=== PATIENT | male | born 1955 | race Caucasian/White ===

== ENCOUNTER 2018-04-28 09:02 | Emergency (ER) | payer OTHER, SELFPAY ==
[2018-04-28 09:06] VITALS: BP 139/92; PULSE 66; RESP 16; TEMP 36.4; O2SAT 95
--- NOTE | 2018-04-28 09:10 | W.ED.GENAD ---
Discharge Plan Disposition Patient Disposition: HOME Condition: Stable Discharge Details Chief Complaint: Trauma Clinical Impression: Laceration of scalp, Head injury Primary Care Provider: WALT,LOCAL ED Provider: Irena Pacheco Home Meds and New Rx's Prescriptions: No Action diclofenac sodium 100 mg Tablet Extended Release 24 Hr 100 mg PO .M,W,F RF: 0 Discharge Instructions Instructions: Laceration (ED), Head Injury (ED), Staple Care (ED) Additional Instructions: Please return immediately to the emergency department if you develop any new or worsening symptoms or if you become otherwise concerned. It is extremely important that you schedule a follow-up appointment with your primary care doctor in 10 days to have your juan removed. Discharge Data Discharge Date/Time-TO BE ENTERED AT DEPARTURE: 04/28/18 11:24 Medical Decision Making MDM Narrative Medical decision making narrative: Jamal Blanco is a 63-year-old man without reported history of major medical problems presenting to the emergency department with blow to the head and laceration that occurred just prior to arrival while at work. On exam patient is well-appearing and nontoxic, benign cardiopulmonary exam, benign neuro exam. Given significant mechanism plan for CT head and neck. Will repair lac. Exam/history not consistent with extremity fracture, significant thoracoabdominal trauma, other emergent life/limb threatening process. CT head and c/s okay. C/s cleared clinically. Lac repaired. Pt reports that he feels well, denies any pain. Lengthy discussion with Pt re: RTED precautions and importance of outpt f/u. Pt is amenable to the plan. Medical Records Medical records reviewed: Yes I reviewed the patient's medical records. Imaging Data Radiologic Study: Radiologist's impression: CRANIAL CT (WITHOUT CONTRAST): A noncontrast cranial CT was performed. No priors. The ventricular system is normal in appearance. There is no evidence of an intracranial mass lesion. There is no evidence of a subdural or epidural hematoma. No focal areas of decreased attenuation are seen. IMPRESSION: Normal noncontrast Cranial CT. CT SCAN OF THE CERVICAL SPINE: Multiple contiguous axial images of the cervical spine were obtained. Sagittal and coronal reformatted images were evaluated on the [employer] workstation. No acute fractures or subluxations are present. Mild degenerative changes are seen in the cervical spine at C 3 - 4 and C 5 - 6. The prevertebral soft tissues are unremarkable. The lung apices are clear. IMPRESSION: No acute fractures or subluxations of the cervical spine. The findings were discussed with the emergency department on the date of the examination. HPI - General Adult General Mode of arrival: EMS. Date/Time Provider Initiated Documentation: 04/28/18 09:10. Limitations to Documentation: no limitations. Information obtained by: patient, RN notes reviewed and old records reviewed. HPI Narrative: Jamal Blanco is a 63 y/o man without a reported history of major medical problems who presents emergency department with blow to the head. 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 He reports that he was knocked into a ditch. He did not lose consciousness. No vomiting. Patient reports mild headache at this time, also some right-sided shoulder pain from landing in the ditch. He denies any other pain. Previously in his usual state of health. No weakness, numbness, tingling, nausea, visual changes. Related Data Home Medications Medication Instructions Recorded Confirmed diclofenac sodium 100 mg PO .M,W,F 04/28/18 04/28/18 Allergies Allergy/AdvReac Type Severity Reaction Status Date / Time Penicillins Allergy Unverified 04/28/18 09:16 Review of Systems Review of Systems Constitutional: denies fevers Eyes: denies eye pain ENT: denies facial pain, dental pain, sore throat Cardiovascular: denies chest pain Respiratory: denies SOB, cough GI: denies abdominal pain, vomiting, diarrhea : denies flank pain MSK: denies back pain, neck pain, myalgias, reports shoulder pain Skin: denies rash Neuro: denies lightheadedness, weakness, reports weakness [facility] Social History Smoking/Tobacco Use Status: Never Exam Narrative Exam Narrative: Constitutional: well and [id number], pleasant, conversing normally HENT: 1.5 cm laceration to left parietal scalp, head o/w atraumatic, normocephalic normal inspection, mucous membranes moist Eyes: conjunctiva normal, sclera normal, pupils 3mm b/l Neck: no stridor, normal ROM, trachea midline, mild diffuse posterior TTP without focality Chest: normal inspection Resp: normal work of breathing, LCTAB Cardio: normal rate, normal rhythm, no murmur appreciated GI: abdomen soft, non-tender, non-distended Back: normal inspection, no rash Skin: warm, dry, normal color, no rash Neuro: alert, not altered, grossly non-focal, normal tone Ext: no edema, right shoulder NTTP with full painless ROM, radial pulses intact and symmetric Psych: normal mood, normal affect, normal behavior Procedures Laceration Laceration 1: Site: scalp Side (If applicable): left Size (cm): 1.5 Description: linear Depth: simple, single layer Pre-repair: wound explored and irrigated extensively Skin layer closed with: other (2 juan)
--- NOTE | 2018-04-28 10:27 | DI.CT_ITS ---
SYMPTOMS/DIAGNOSIS: TRAUMA, HEADACHE, NECK PAIN CRANIAL CT (WITHOUT CONTRAST): A noncontrast cranial CT was performed. No priors. The ventricular system is normal in appearance. There is no evidence of an intracranial mass lesion. There is no evidence of a subdural or epidural hematoma. No focal areas of decreased attenuation are seen. IMPRESSION: Normal noncontrast Cranial CT. CT SCAN OF THE CERVICAL SPINE: Multiple contiguous axial images of the cervical spine were obtained. Sagittal and coronal reformatted images were evaluated on the [employer] workstation. No acute fractures or subluxations are present. Mild degenerative changes are seen in the cervical spine at C 3 - 4 and C 5 - 6. The prevertebral soft tissues are unremarkable. The lung apices are clear. IMPRESSION: No acute fractures or subluxations of the cervical spine. The findings were discussed with the emergency department on the date of the examination.
--- NOTE | 2018-05-05 07:43 | ED.GENADUL_ITS ---
Discharge Plan Disposition Patient Disposition: HOME Condition: Stable Discharge Details Chief Complaint: Trauma Clinical Impression: Laceration of scalp, Head injury Primary Care Provider: [facility],LOCAL ED Provider: Irena Pacheco Home Meds and New Rx's Prescriptions: No Action diclofenac sodium 100 mg Tablet Extended Release 24 Hr 100 mg PO .M,W,F RF: 0 Discharge Instructions Instructions: Laceration (ED), Head Injury (ED), Staple Care (ED) Additional Instructions: Please return immediately to the emergency department if you develop any new or worsening symptoms or if you become otherwise concerned. It is extremely important that you schedule a follow-up appointment with your primary care doctor in 10 days to have your juan removed. Discharge Data Discharge Date/Time-TO BE ENTERED AT DEPARTURE: 04/28/18 11:24 Medical Decision Making MDM Narrative Medical decision making narrative: Jamal Blanco is a 63-year-old man without reported history of major medical problems presenting to the emergency department with blow to the head and laceration that occurred just prior to arrival while at work. On exam patient is well-appearing and nontoxic, benign cardiopulmonary exam, benign neuro exam. Given significant mechanism plan for CT head and neck. Will repair lac. Exam/history not consistent with extremity fracture, significant thoracoabdominal trauma, other emergent life/limb threatening process. CT head and c/s okay. C/s cleared clinically. Lac repaired. Pt reports that he feels well, denies any pain. Lengthy discussion with Pt re: RTED precautions and importance of outpt f/u. Pt is amenable to the plan. Medical Records Medical records reviewed: Yes I reviewed the patient's medical records. Imaging Data Radiologic Study: Radiologist's impression: CRANIAL CT (WITHOUT CONTRAST): A noncontrast cranial CT was performed. No priors. The ventricular system is normal in appearance. There is no evidence of an intracranial mass lesion. There is no evidence of a subdural or epidural hematoma. No focal areas of decreased attenuation are seen. IMPRESSION: Normal noncontrast Cranial CT. CT SCAN OF THE CERVICAL SPINE: Multiple contiguous axial images of the cervical spine were obtained. Sagittal and coronal reformatted images were evaluated on the [employer]'s workstation. No acute fractures or subluxations are present. Mild degenerative changes are seen in the cervical spine at C 3 - 4 and C 5 - 6. The prevertebral soft tissues are unremarkable. The lung apices are clear. IMPRESSION: No acute fractures or subluxations of the cervical spine. The findings were discussed with the emergency department on the date of the examination. HPI - General Adult General Mode of arrival: EMS . Date/Time Provider Initiated Documentation: 04/28/18 09:10 . Limitations to Documentation: no limitations . Information obtained by: patient, RN notes reviewed and old records reviewed . HPI Narrative: Jamal Blanco is a 63 y/o man without a reported history of major medical problems who presents emergency department with blow to the head. 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 He reports that he was knocked into a ditch. He did not lose consciousness. No vomiting. Patient reports mild headache at this time, also some right-sided shoulder pain from landing in the ditch. He denies any other pain. Previously in his usual state of health. No weakness, numbness, tingling, nausea, visual changes. Related Data Home Medications Medication Instructions Recorded Confirmed diclofenac sodium 100 mg PO .M,W,F 04/28/18 04/28/18 Allergies Allergy/AdvReac Type Severity Reaction Status Date / Time Penicillins Allergy Unverified 04/28/18 09:16 Review of Systems Review of Systems Constitutional: denies fevers Eyes: denies eye pain ENT: denies facial pain, dental pain, sore throat Cardiovascular: denies chest pain Respiratory: denies SOB, cough GI: denies abdominal pain, vomiting, diarrhea : denies flank pain MSK: denies back pain, neck pain, myalgias, reports shoulder pain Skin: denies rash Neuro: denies lightheadedness, weakness, reports weakness [facility] Social History Smoking/Tobacco Use Status: Never Exam Narrative Exam Narrative: Constitutional: well and [id number], pleasant, conversing normally HENT: 1.5 cm laceration to left parietal scalp, head o/w atraumatic, normocephalic normal inspection, mucous membranes moist Eyes: conjunctiva normal, sclera normal, pupils 3mm b/l Neck: no stridor, normal ROM, trachea midline, mild diffuse posterior TTP without focality Chest: normal inspection Resp: normal work of breathing, LCTAB Cardio: normal rate, normal rhythm, no murmur appreciated GI: abdomen soft, non-tender, non-distended Back: normal inspection, no rash Skin: warm, dry, normal color, no rash Neuro: alert, not altered, grossly non-focal, normal tone Ext: no edema, right shoulder NTTP with full painless ROM, radial pulses intact and symmetric Psych: normal mood, normal affect, normal behavior Procedures Laceration Laceration 1: Site: scalp Side (If applicable): left Size (cm): 1.5 Description: linear Depth: simple, single layer Pre-repair: wound explored and irrigated extensively Skin layer closed with: other (2 juan)
== END 2018-04-28 11:24 | disposition home or self-care (01) ==
PROVIDERS: Emergency Provider Student in an Organized Health Care Education/Training Program
DX: S01.01XA Laceration without foreign body of scalp, initial encounter (principal); S09.90XA Unspecified injury of head, initial encounter; M54.2 Cervicalgia; W31.89XA Contact with other specified machinery, initial encounter; Y99.0 Civilian activity done for income or pay; R51 Headache
CPT/HCPCS: 12001; 99284; 70450; 72125; 99283; L0172

== ENCOUNTER 2018-05-08 06:50 | Emergency (ER) | payer SELFPAY ==
[2018-05-08 06:56] VITALS: BP 148/90; PULSE 76; RESP 16; TEMP 36.7; O2SAT 94
--- NOTE | 2018-05-08 07:08 | W.ED.GENAD ---
Discharge Plan Disposition Patient Disposition: HOME Condition: Good Discharge Details Chief Complaint: SutureRem Clinical Impression: Visit for suture removal Primary Care Provider: WALT,LOCAL ED Provider: Young Encarnacion Home Meds and New Rx's Prescriptions: No Action diclofenac sodium 100 mg Tablet Extended Release 24 Hr 100 mg PO .M,W,F RF: 0 glucosamine sulfate [Glucosamine] 500 mg Tablet 1 tab PO DAILY RF: 0 Pancharisse French [id number] [Ginseng Complex] 150 mg-25 mg- 25 mg-15 mcg Capsule 1 tab PO DAILY RF: 0 Discharge Instructions Additional Instructions: If you notice any worsening of your symptoms, or any new symptoms such as vomiting, diarrhea, fever, chills, shortness of breath, chest pain, numbness, weakness, or fainting , please return immediately to the emergency department for reevaluation. Please follow up with your primary care provider as soon as possible for reassessment and reevaluation. As always, it was a pleasure participating in your medical care today. Medical Decision Making This is a 63-year-old male who presents for juan removal. 2 juan are present in the left scalp. Excellent wound healing. Normal wound edge reapproximation. Excellent progress for his laceration. Patient had both juan removed and tolerated this well. No complications. Patient will be discharged home. HPI General Date/Time Provider Initiated Documentation: 05/08/18 07:08. HPI Narrative: This is a pleasant 63-year-old male who presents for suture removal. 10 days ago he was struck in the left scalp by an excavator. He has been doing well since then. He has had no complications of headaches, numbness tingling or weakness. He denies any fever or chills. He has no complaints at this time. He would like his sutures removed Related Data Home Medications Medication Instructions Recorded Confirmed diclofenac sodium 100 mg PO .M,W,F 04/28/18 05/08/18 Panax, French [id number] 1 tab PO DAILY 05/08/18 05/08/18 [Ginseng Complex] glucosamine sulfate [Glucosamine] 1 tab PO DAILY 05/08/18 05/08/18 Allergies Allergy/AdvReac Type Severity Reaction Status Date / Time Penicillins Allergy Unverified 05/08/18 06:58 General Stated Complaint: SutureRem MICHAEL: 5 Review of Systems Review of Systems All systems reviewed & are unremarkable except as noted in HPI and below PFSH Social History Smoking/Tobacco Use Status: Never Exam Narrative Exam Narrative: 1.Const: Well-nourished, Well-developed, appearing stated age 2.Eyes: PERRL, no conjunctival injection, and symmetrical lids. 3.ENT: Atraumatic external nose and ears. Moist MM. Neck: Symmetric, trachea midline, No thyromegaly. 4.CVS: +S1/S2, No murmurs or gallops. Peripheral pulses 2+ and equal in all extremities. Brisk capillary refill in all extremities. 5.RESP: Unlabored respiratory effort. Clear to auscultation bilaterally. No wheezes rales or rhonchi 6.GI: Soft, Nontender/Nondistended, No hepatosplenomegaly. No guarding or rebound. 7.MSK: Normocephalic/Atraumatic, Extremities w/o deformity or ttp No cyanosis or clubbing, Normal movement of all extremities 8.Skin: Warm, Dry. No rashes or lesions. [address]an are present over the left scalp. Small scab. Good wound edge reapproximation. Excellent healing. 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 Sensation grossly intact, no focal neurologic deficits. 10.Psych: (AAO) x3. Appropriate mood and affect Course Vital Signs Temperature 36.7 C 05/08/18 06:56 Pulse 76 05/08/18 06:56 Respiratory Rate 16 05/08/18 06:56 Blood Pressure 148/90 H 05/08/18 06:56 Pulse Oximetry 94 L 05/08/18 06:56 Temperature 36.7 C 05/08/18 06:56 Temperature Source Skin 05/08/18 06:56 Pulse 76 05/08/18 06:56 Respiratory Rate 16 05/08/18 06:56 Respiratory Effort 05/08/18 06:56 Blood Pressure 148/90 H 05/08/18 06:56 Blood Pressure Position Sitting 05/08/18 06:56 Pulse Oximetry 94 L 05/08/18 06:56 Oxygen Delivery Method Room Air 05/08/18 06:56 Oxygen Flow Rate 0 05/08/18 06:56 Pain Level 0 05/08/18 06:56
--- NOTE | 2018-05-08 07:11 | ED.GENADUL_ITS ---
Discharge Plan Disposition Patient Disposition: HOME Condition: Good Discharge Details Chief Complaint: SutureRem Clinical Impression: Visit for suture removal Primary Care Provider: WALT,LOCAL ED Provider: Young Encarnacion Home Meds and New Rx's Prescriptions: No Action diclofenac sodium 100 mg Tablet Extended Release 24 Hr 100 mg PO .M,W,F RF: 0 glucosamine sulfate [Glucosamine] 500 mg Tablet 1 tab PO DAILY RF: 0 Pancharisse Citizen [place] [id number] [Ginseng Complex] 150 mg-25 mg- 25 mg-15 mcg Capsule 1 tab PO DAILY RF: 0 Discharge Instructions Additional Instructions: If you notice any worsening of your symptoms, or any new symptoms such as vomiting, diarrhea, fever, chills, shortness of breath, chest pain, numbness, weakness, or fainting , please return immediately to the emergency department for reevaluation. Please follow up with your primary care provider as soon as possible for reassessment and reevaluation. As always, it was a pleasure participating in your medical care today. Medical Decision Making This is a 63-year-old male who presents for juan removal. 2 juan are present in the left scalp. Excellent wound healing. Normal wound edge reapproximation. Excellent progress for his laceration. Patient had both juan removed and tolerated this well. No complications. Patient will be discharged home. HPI General Date/Time Provider Initiated Documentation: 05/08/18 07:08 . HPI Narrative: This is a pleasant 63-year-old male who presents for suture removal. 10 days ago he was struck in the left scalp by an excavator. He has been doing well since then. He has had no complications of headaches, numbness tingling or weakness. He denies any fever or chills. He has no complaints at this time. He would like his sutures removed Related Data Home Medications Medication Instructions Recorded Confirmed diclofenac sodium 100 mg PO .M,W,F 04/28/18 05/08/18 Panax, Citizen [place] [id number] 1 tab PO DAILY 05/08/18 05/08/18 [Ginseng Complex] glucosamine sulfate [Glucosamine] 1 tab PO DAILY 05/08/18 05/08/18 Allergies Allergy/AdvReac Type Severity Reaction Status Date / Time Penicillins Allergy Unverified 05/08/18 06:58 General Stated Complaint: SutureRem MICHAEL: 5 Review of Systems Review of Systems All systems reviewed & are unremarkable except as noted in HPI and below PFSH Social History Smoking/Tobacco Use Status: Never Exam Narrative Exam Narrative: 1.Const: Well-nourished, Well-developed, appearing stated age 2.Eyes: PERRL, no conjunctival injection, and symmetrical lids. 3.ENT: Atraumatic external nose and ears. Moist MM. Neck: Symmetric, trachea midline, No thyromegaly. 4.CVS: +S1/S2, No murmurs or gallops. Peripheral pulses 2+ and equal in all extremities. Brisk capillary refill in all extremities. 5.RESP: Unlabored respiratory effort. Clear to auscultation bilaterally. No wheezes rales or rhonchi 6.GI: Soft, Nontender/Nondistended, No hepatosplenomegaly. No guarding or rebound. 7.MSK: Normocephalic/Atraumatic, Extremities w/o deformity or ttp No cyanosis or clubbing, Normal movement of all extremities 8.Skin: Warm, Dry. No rashes or lesions. [address] juan are present over the left scalp. Small scab. Good wound edge reapproximation. Excellent healing. 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 Sensation grossly intact, no focal neurologic deficits. 10.Psych: (AAO) x3. Appropriate mood and affect Course Vital Signs Temperature 36.7 C 05/08/18 06:56 Pulse 76 05/08/18 06:56 Respiratory Rate 16 05/08/18 06:56 Blood Pressure 148/90 H 05/08/18 06:56 Pulse Oximetry 94 L 05/08/18 06:56 Temperature 36.7 C 05/08/18 06:56 Temperature Source Skin 05/08/18 06:56 Pulse 76 05/08/18 06:56 Respiratory Rate 16 05/08/18 06:56 Respiratory Effort 05/08/18 06:56 Blood Pressure 148/90 H 05/08/18 06:56 Blood Pressure Position Sitting 05/08/18 06:56 Pulse Oximetry 94 L 05/08/18 06:56 Oxygen Delivery Method Room Air 05/08/18 06:56 Oxygen Flow Rate 0 05/08/18 06:56 Pain Level 0 05/08/18 06:56
== END 2018-05-08 07:16 | disposition home or self-care (01) ==
PROVIDERS: Emergency Provider Student in an Organized Health Care Education/Training Program
DX: S01.01XD Laceration without foreign body of scalp, subsequent encounter (principal); W31.89XD Contact with other specified machinery, subsequent encounter; Z48.02 Encounter for removal of sutures